=== PATIENT | female | born 1930 | race Caucasian/White ===

== ENCOUNTER 2019-06-07 12:53 | Inpatient (IN) | payer MEDICARE ==
[~2019-06-07] VITALS: Ht 152.4 cm; Wt 58.5 kg
[2019-06-07] MEDS ORDERED: ACETAMINOPHEN325 M1 PO (13:26)
[2019-06-07] MEDS ORDERED: LIPITOR 20 MG T20 M1 PO (13:27)
[2019-06-07] MEDS ORDERED: CARVEDILOL12.5 MG PO (13:28)
[2019-06-07] MEDS ORDERED: ARICEPT10 M1 PO (13:29)
[2019-06-07] MEDS ORDERED: IRON325 M1 PO (13:31)
[2019-06-07] MEDS ORDERED: XYZAL5 MG PO (13:32)
[2019-06-07] MEDS ORDERED: NAMENDA 5 MG TAB5 M1 PO (13:37)
[2019-06-07] MEDS ORDERED: SINGULAIR 10 MG10 M1 PO (13:38)
[2019-06-07] MEDS ORDERED: ZOLOFT100 MG PO (13:39)
[2019-06-07 16:30] VITALS: BP 151/71
[2019-06-07 20:18] VITALS: BP 129/57
[2019-06-08 04:10] LABS: HEMATOCRIT 33.3 % (37.0-47.0); HEMOGLOBIN 11.3 gm/dL (12.0-15.0); MCH 30.5 pg (26.0-34.0); MCV 89.6 fL (80.0-100.0); MPV 8.3 fl. (7.2-11.1); RBC 3.72 mil/uL (4.20-5.00); RDW-CV 15.6 % (10.5-14.5); WBC 6.2 thou/uL (4.0-11.0)
[2019-06-08 04:26] LABS: CALCIUM 8.9 mg/dL (8.5-10.1); CREATININE 1.8 mg/dL (0.6-1.3); POTASSIUM 4.4 mmol/L (3.5-5.1)
[2019-06-08 08:16] VITALS: BP 138/74
[2019-06-08 20:04] VITALS: BP 125/49
[2019-06-09 07:30] VITALS: BP 147/58
[2019-06-09 20:09] VITALS: BP 144/56
[2019-06-10 07:29] VITALS: BP 142/64
[2019-06-10 19:15] VITALS: BP 109/32
[2019-06-11 08:12] VITALS: BP 175/66
[2019-06-11 16:59] VITALS: BP 154/68
[2019-06-11 19:00] VITALS: BP 114/35
[2019-06-12 07:33] VITALS: BP 144/58
[2019-06-12 19:00] VITALS: BP 93/36
[2019-06-12 19:56] VITALS: BP 104/33
[2019-06-13 07:56] VITALS: BP 133/60
[2019-06-13 20:09] VITALS: BP 102/47
[2019-06-14 07:52] VITALS: BP 141/62
[2019-06-14 20:10] VITALS: BP 133/58
[2019-06-15 08:22] VITALS: BP 134/83
[2019-06-15 20:14] VITALS: BP 122/60
[2019-06-16 08:00] VITALS: BP 145/62
[2019-06-16 13:00] LABS: HEMATOCRIT 32.5 % (37.0-47.0); HEMOGLOBIN 10.7 gm/dL (12.0-15.0); MCHC 32.9 g/dL (28.0-37.0); MCV 91.3 fL (80.0-100.0); MPV 8.1 fl. (7.2-11.1); RBC 3.56 mil/uL (4.20-5.00); RDW-CV 15.3 % (10.5-14.5); WBC 5.8 thou/uL (4.0-11.0)
[2019-06-16 13:08] LABS: CALCIUM 8.8 mg/dL (8.5-10.1); CREATININE 1.3 mg/dL (0.6-1.3); POTASSIUM 4.1 mmol/L (3.5-5.1)
[2019-06-16 19:30] VITALS: BP 124/51
[2019-06-17 07:59] VITALS: BP 159/65
[2019-06-17 19:30] VITALS: BP 134/48
[2019-06-18 07:58] VITALS: BP 136/45
[2019-06-18 08:04] VITALS: BP 145/69
[2019-06-18 19:10] VITALS: BP 103/57
[2019-06-19 08:00] VITALS: BP 140/66
[2019-06-19 13:50] VITALS: BP 140/66
[2019-06-19] MEDS ORDERED: TRAMADOL 50 MG50 MG PO (16:43)
[2019-06-19] MEDS ORDERED: ASPIRIN EC325 MG PO (16:46)
[2019-06-19 16:48] VITALS: BP 140/66
== END 2019-06-19 17:20 | disposition home health service (06) | DRG 56 ==
LOC: M.REH 12:53
PROVIDERS: Internal Medicine; ADMIT Physical Medicine & Rehabilitation
DX: I69.354 Hemiplegia and hemiparesis following cerebral infarction affecting left non-dominant side (principal); I63.9 Cerebral infarction, unspecified; R29.810 Facial weakness; F03.90 Unspecified dementia, unspecified severity, without behavioral disturbance, psychotic disturbance, mood disturbance, and anxiety; Z60.2 Problems related to living alone; R47.1 Dysarthria and anarthria; E78.5 Hyperlipidemia, unspecified; I48.91 Unspecified atrial fibrillation; E87.5 Hyperkalemia; I12.9 Hypertensive chronic kidney disease with stage 1 through stage 4 chronic kidney disease, or unspecified chronic kidney disease; N18.3 Chronic kidney disease, stage 3 (moderate); Z88.0 Allergy status to penicillin; Z93.2 Ileostomy status; Z90.49 Acquired absence of other specified parts of digestive tract; Z88.2 Allergy status to sulfonamides; Z87.891 Personal history of nicotine dependence